=== PATIENT | male | born 1995 | race American Indian/Alaskan Native ===

== ENCOUNTER 2020-10-11 01:51 | Emergency (ER) | payer MEDICAID ==
[2020-10-11] MEDS ORDERED: levETIRAcetam 1000 MG/NS 0.75% 1,000 MG/100 ML BAG IV ONE (02:00)
--- NOTE | 2020-10-11 02:04 | Emergency Department Report ---
ED Seizure HPI - General Chief Complaint: Seizure Stated Complaint: SEIZURES Time Seen by Provider: 10/11/20 01:58 Source: patient, EMS Mode of arrival: Stretcher Limitations: No Limitations - History of Present Illness Initial Comments: Patient is 25 years old male with history of seizure on Keppra. Patient brought to the emergency room via EMS from home after patient experienced 1 episode of generalized tonic-clonic seizure. Patient stated that he is compliant with his medication but he missed his dose yesterday. Patient denied any fever or chi lls. No nausea or vomiting or diarrhea. No injury. MD Complaint: seizure -: Sudden, This morning Description of Episode: loss of consciousness, tonic-clonic movement, post-event confusion Witnessed:: Yes Trauma: No Seizure History: known seizure disorder Place: home Possible Precipitating Event: none Associated Symptoms: denies other symptoms - Related Data Allergies Allergy/AdvReac Type Severity Reaction Status Date / Time No Known Allergies Allergy Unverified 10/11/20 02:09 ED Review of Systems ROS: Stated complaint: SEIZURES Other details as noted in HPI Comment: All other systems reviewed and negative Constitutional: denies: chills, fever Respiratory: denies: cough, shortness of breath, SOB with exertion, SOB at rest, wheezing Cardiovascular: denies: chest pain, palpitations Gastrointestinal: denies: abdominal pain, nausea, vomiting Musculoskeletal: denies: back pain Neurological: denies: headache, weakness, numbness, paresthesias, confusion, abnormal gait ED Physical Exam - General Limitations: No Limitations General appearance: alert, in no apparent distress - Head Head exam: Present: atraumatic, normocephalic, normal inspection - Eye Eye exam: Present: normal appearance - ENT ENT exam: Present: normal exam, normal orophraynx, mucous membranes moist - Neck Neck exam: Present: normal inspection, full ROM. Absent: tenderness, meningis mus - Respiratory Respiratory exam: Present: normal lung sounds bilaterally - Cardiovascular Cardiovascular Exam: Present: regular rate, normal rhythm, normal heart sounds - GI/Abdominal GI/Abdominal exam: Present: soft, normal bowel sounds. Absent: distended, tenderness, guarding, rebound, rigid, organomegaly, mass, bruit, pulsatile mass, hernia - Extremities Exam Extremities exam: Present: normal inspection, full ROM, normal capillary refill. Absent: tenderness, pedal edema, calf tenderness - Back Exam Back exam: Present: normal inspection, full ROM. Absent: CVA tenderness (R), CVA tenderness (L) - Neurological Exam Neurological exam: Present: alert, oriented X3, CN II-XII intact, normal gait, reflexes normal. Absent: motor sensory deficit - Psychiatric Psychiatric exam: Present: normal mood - Skin Skin exam: Present: warm, intact, normal color ED Course Vital Signs 10/11/20 10/11/20 10/11/20 01:55 01:56 01:57 Temperature Pulse Rate 100 H 100 H 101 H Respiratory 31 H 34 H 25 H Rate Blood Pressure 116/58 116/58 O2 Sat by Pulse 96 96 96 Oximetry 10/11/20 10/11/20 10/11/20 01:59 02:01 02:03 Temperature 97.1 F L Pulse Rate 100 H 125 H 99 H Respiratory 23 29 H 19 Rate Blood Pressure 116/58 116/58 116/58 O2 Sat by Pulse 95 97 97 Oximetry 10/11/20 10/11/20 10/11/20 02:05 02:07 02:09 Temperature Pulse Rate 96 H 95 H 95 H Respiratory 24 30 H 29 H Rate Blood Pressure 116/58 116/58 116/58 O2 Sat by Pulse 98 98 97 Oximetry 10/11/20 10/11/20 10/11/20 02:11 02:13 02:15 Temperature Pulse Rate 93 H 93 H 94 H Respiratory 28 H 30 H 30 H Rate Blood Pressure 116/58 116/58 116/61 O2 Sat by Pulse 97 97 98 Oximetry 10/11/20 10/11/20 10/11/20 02:17 02:19 02:21 Temperature Pulse Rate 92 H 91 H 93 H Respiratory 28 H 31 H 31 H Rate Blood Pressure 116/61 116/61 116/61 O2 Sat by Pulse 98 97 96 Oximetry 10/11/20 10/11/20 10/11/20 02:23 02:25 02:27 Temperature Pulse Rate 92 H 90 98 H Respiratory 25 H 30 H 29 H Rate Blood Pressure 116/61 116/61 116/61 O2 Sat by Pulse 97 98 97 Oximetry ED Medical Decision Making - Lab Data Result diagrams: 10/11/20 02:04 10/11/20 02:04 - Medical Decision Making Patient is 25 years old male with history of seizure on Keppra. Patient brought to the emergency room via EMS from home after patient experienced 1 episode of generalized tonic-clonic seizure. Patient stated that he is compliant with his medication but he missed his dose yesterday. Patient denied any fever or chills. No nausea or vomiting or diarrhea. No injury. Patient received 1 g of Keppra IV. Labs reviewed and is unremarkable. No seizure noticed in the ER. Patient strongly advised to follow-up with his neurologist in the next 2 to 3 days and to return to the ER if he develop any new symptoms. Critical care attestation.: If time is entered above; I have spent that time in minutes in the direct care of this critically ill patient, excluding procedure time. ED Disposition Clinical Impression: Seizure Disposition: DC-01 TO HOME OR SELFCARE Is pt being admited?: No Condition: Stable Instructions: Epilepsy, [id number]
[2020-10-11 02:16] LABS: Basophils # (Auto) 0.1 K/mm3 (0.0-0.1); Basophils % (Auto) 0.7 % (0.0-1.8); Eosinophils # (Auto) 0.7 K/mm3 (0.0-0.4); Eosinophils % (Auto) 8.4 % (0.0-4.3); Hematocrit 42.7 % (35.5-45.6); Hemoglobin 14.2 gm/dl (11.8-15.2); Lymphocytes # (Auto) 3.1 K/mm3 (1.2-5.4); Lymphocytes % (Auto) 37.2 % (13.4-35.0); Mean Corpuscular HGB Conc 33 % (32-34); Mean Corpuscular Volume 93 fl (84-94); Monocytes # (Auto) 0.8 K/mm3 (0.0-0.8); Monocytes % (Auto) 9.7 % (0.0-7.3); Platelet Count 209 K/mm3 (140-440); Red Blood Count 4.58 M/mm3 (3.65-5.03); Red Cell Distribution Width 14.4 % (13.2-15.2)
[2020-10-11 02:18] LABS: Bilirubin,Urine NEG (Negative); Blood,Urine NEG (Negative); Color,Urine Yellow (Yellow); Mucus,Urine FEW /HPF; Urobilinogen,Urine < 2.0 mg/dL (<2.0)
[2020-10-11 02:24] LABS: Amphetamine Screen,Urine Negative; Benzodiazepines Screen,Urine Negative; Cocaine Screen,Urine Negative; Methadone Screen,Urine Negative; Opiate Screen,Urine Negative
[2020-10-11 02:35] LABS: Alanine Aminotransferase 49 units/L (7-56); Albumin 4.2 g/dL (3.9-5); BUN/Creatinine Ratio 6; Blood Urea Nitrogen 7 mg/dL (9-20); Calcium 9.4 mg/dL (8.4-10.2); Hemolysis Index 6
[2020-10-11 02:36] LABS: Bilirubin,Direct < 0.2 mg/dL (0-0.2)
[2020-10-11 02:37] LABS: Cannabinoid Screen,Urine Positive
[2020-10-11 03:39] VITALS: BP 118/61
== END 2020-10-11 04:14 | disposition home or self-care (01) ==
LOC: ED 01:51
DX: G40.909 Epilepsy, unspecified, not intractable, without status epilepticus (principal)
CPT/HCPCS: 36415; 80048; 80076; 80307; 81001; 85025; 87086; 96365; 99284; J1953